=== PATIENT | male | born 1995 | race Caucasian/White ===

== ENCOUNTER 2018-04-02 06:51 | Emergency (ER) | payer OTHER ==
--- NOTE | 2018-04-02 07:15 | ED Physician Documentation ---
History of Present Illness - Stated complaint Stated Complaint: PANIC ATTACK - Chief complaint Chief Complaint: General - History obtained from History obtained from: Patient - History of Present Illness Timing: Today Improved by: nothing Worsened by: nothing - Additonal information Additional information: Patient is a 23-year-old male with a long history of anxiety. He takes Paxil at night. This morning awoke with what feels like his usual panic attack, but is lasting longer than normal. He feels very anxious and shaky. Has never had to take anything else for his panic attacks before. He had some chest tightness with this, rated as a 6 out of 10 initially, currently a 2 out of 10. No chest pain per se. No shortness of breath. States he just feels incredibly anxious. No recent drug use. No increased caffeine intake. No recent alcohol use. Review of Systems Ten Systems: 10 systems reviewed and negative Constitutional: denies: Fever, Chills Ears: denies: Ear pain Nose: denies: Rhinorrhea / runny nose, Congestion Throat: denies: Sore throat Respiratory: denies: Cough GI: denies: Abdominal Pain, Nausea, Vomiting, Diarrhea Skin: denies: Rash Musculoskeletal: denies: Neck pain, Back pain Neurologic: denies: Headache PD PAST MEDICAL HISTORY - Past Medical History Past Medical History: Yes Psych: Anxiety - Past Surgical History Past Surgical History: Yes Ortho: Other - Present Medications Home Medications: Ambulatory Orders Medication Instructions Recorded Confirmed Methocarbamol 04/02/18 Naproxen 04/02/18 Paroxetine HCl [Paxil] 04/02/18 - Allergies Allergies/Adverse Reactions: Allergies Allergy/AdvReac Type Severity Reaction Status Date / Time No Known Drug Allergies Allergy Verified 04/02/18 06:57 - Social History Does the pt smoke?: No Smoking Status: Never smoker Does the pt drink ETOH?: Yes Does the pt have substance abuse?: No - Immunizations Immunizations are current?: Yes PD ED PE NORMAL - Vitals Vital signs reviewed: Yes - General General: Alert and oriented X 3, Other (appears very anxious) - HEENT HEENT: Moist mucous membranes - Neck Neck: Supple, no meningeal sign - Cardiac Cardiac: RRR - Respiratory Respiratory: No respiratory distress, Clear bilaterally - Abdomen Abdomen: Soft, Non tender, Non distended - Derm Derm: Warm and dry - Extremities Extremities: No calf tenderness / cord - Neuro Neuro: Alert and oriented X 3 Results - Vitals Vitals: Vital Signs - 24 hr 04/02/18 04/02/18 04/02/18 06:55 07:30 08:10 Temperature 36.6 C Heart Rate 83 85 76 Respiratory 23 20 18 Rate Blood Pressure 103/87 H 113/83 H 132/92 H O2 Saturation 99 97 Oxygen O2 Source Room air - EKG (time done) 0702 Rate: Rate (enter#) (84) Rhythm: NSR [place]: Normal Intervals: Normal ID QRS: Normal Ischemia: Normal ST segments PD MEDICAL DECISION MAKING - ED course Complexity details: reviewed results, re-evaluated patient, considered differential, d/w patient ED course: Patient is a 23-year-old male who presents to the emergency department what appears to be a panic attack. Symptoms resolved with benzodiazepines in the emergency department. He is well-appearing, nontoxic. No evidence of acute coronary syndrome. No evidence of pulmonary embolus. Patient counseled regarding signs and symptoms for which I believe and urgent re-evaluation would be necessary. Patient with good understanding of and agreement to plan and is comfortable going home at this time This document was made in part using voice recognition software. While efforts are made to proofread this document, sound alike and grammatical errors may occur. Departure - Departure Disposition: 01 Home, Self Care Clinical Impression: Anxiety Condition: Good Instructions: ED Panic Attack Follow-Up: MIKI AGUILAR MD [Primary Care Provider] - Within 1 week Comments: Return if you worsen. Rest today. Forms: Activity restrictions Discharge Date/Time: 04/02/18 08:10
[2018-04-02] MEDS ORDERED: LORazepam 0.5 MG TABLET PO STA (07:20)
[2018-04-02 08:49] VITALS: BP 132/92
== END 2018-04-02 08:10 | disposition home or self-care (01) ==
LOC: ED 06:51
DX: F41.9 Anxiety disorder, unspecified (principal)
CPT/HCPCS: 93005; 99283; A9270

== ENCOUNTER 2018-05-23 08:36 | Emergency (ER) | payer OTHER ==
[2018-05-23] MEDS ORDERED: DEXAMETHASONE 10 MG/ML VIAL PO STA (09:49)
--- NOTE | 2018-05-23 09:52 | ED Physician Documentation ---
History of Present Illness - Stated complaint Stated Complaint: PANIC ATTACK - Chief complaint Chief Complaint: MHE - History obtained from History obtained from: Patient - History of Present Illness Timing: Today - Additonal information Additional information: 23-year-old male with history of panic disorder has developed a panic attack this morning while he was getting ready for work. He characterized the symptoms as pounding in his chest feeling of shortness of breath and anxiety. His symptoms have now resolved. He did take some propranolol which is his as needed medicine for his panic attack. He felt that the symptoms lasted 2-3 hours. 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 He has had anxiety related to his work for some time and is on treatment through the [facility] including medication and counseling. He has developed a cough and congestion over the last 3 days and comes into the emergency department wearing a mask. Review of Systems Constitutional: denies: Fever Eyes: denies: Decreased vision Ears: denies: Ear pain Nose: reports: Rhinorrhea / runny nose, Congestion Throat: reports: Sore throat Cardiac: denies: Chest pain / pressure, Palpitations Respiratory: reports: Dyspnea, Cough GI: denies: Nausea, Vomiting Skin: denies: Rash Musculoskeletal: denies: Neck pain, Back pain, Extremity pain Neurologic: reports: Numbness. denies: Generalized weakness, Focal weakness PD PAST MEDICAL HISTORY - Past Medical History Past Medical History: Yes Respiratory: Sleep apnea Psych: Anxiety - Past Surgical History Past Surgical History: Yes Ortho: Other - Present Medications Home Medications: Ambulatory Orders Medication Instructions Recorded Confirmed Methocarbamol 750 mg PO BID 04/02/18 Naproxen 500 mg PO PRN 04/02/18 Paroxetine HCl [Paxil] 40 mg PO DAILY 04/02/18 05/23/18 Azithromycin [Zithromax] 250 mg PO DAILY #6 tablet 05/23/18 Lorazepam [Ativan] 1 mg PO Q6HR PRN #12 tablet 05/23/18 Propranolol [Inderal] 10 mg PO PRN 05/23/18 - Allergies Allergies/Adverse Reactions: Allergies Allergy/AdvReac Type Severity Reaction Status Date / Time No Known Drug Allergies Allergy Verified 05/23/18 08:50 - Social History Does the pt smoke?: No Smoking Status: Never smoker Does the pt drink ETOH?: Yes Does the pt have substance abuse?: No - Immunizations Immunizations are current?: Yes - POLST Patient has POLST: No PD ED PE NORMAL - Vitals Vital signs reviewed: Yes (hypertensive mild ) - General General: Alert and oriented X 3, No acute distress, Well developed/nourished - HEENT HEENT: Atraumatic, PERRL, EOMI, Other (The right TM is mildly inflamed and the left is more involved with distortion of the landmarks and increased redness. 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 He does have a decompensating illness with otitis media and this is treated aggressively here in the emergency department. He is administered dexamethasone 10 mg orally and we will place him on some azithromycin. I have indicated to the patient while will provide a prescription for some Ativan to be used as needed and he will follow-up with mental health at [facility]. - Sepsis Event Vital Signs: Vital Signs - 24 hr 05/23/18 08:40 Temperature 36.0 C L Heart Rate 80 Respiratory 18 Rate Blood Pressure 136/72 H O2 Saturation 98 Oxygen O2 Source Room air Departure - Departure Disposition: 01 Home, Self Care Clinical Impression: Anxiety Otitis media Qualifiers: Otitis media type: suppurative Chronicity: acute Laterality: bilateral Recurrence: not specified as recurrent Spontaneous tympanic membrane rupture: without spontaneous rupture Qualified Code(s): H66.003 - Acute suppurative otitis media without spontaneous rupture of ear drum, bilateral Condition: Stable Instructions: ED Stress React, ED Otitis Media Acute Adult, ED Panic Attack Follow-Up: MIKI AGUILAR MD [Primary Care Provider] - Prescriptions: Lorazepam [Ativan] 1 mg PO Q6HR PRN #12 tablet PRN Reason: Anxiety Azithromycin [Zithromax] 250 mg PO DAILY #6 tablet Forms: Activity restrictions
[2018-05-23 10:28] VITALS: BP 133/75
== END 2018-05-23 10:20 | disposition home or self-care (01) ==
LOC: ED 08:36
DX: F41.9 Anxiety disorder, unspecified (principal); H66.003 Acute suppurative otitis media without spontaneous rupture of ear drum, bilateral; F41.0 Panic disorder [episodic paroxysmal anxiety]
CPT/HCPCS: 99283